=== PATIENT | male | born 1955 | race Caucasian/White ===

== ENCOUNTER → 2017-02-10 | Outpatient (CLI) | payer BC ==
[2015-08-06 05:26] VITALS: BP 149/88
--- NOTE | 2017-02-10 14:04 | RAD ---
Chest x-ray Indication: Cough and sinus drainage for one year Technique: PA and lateral views of the chest Comparison: None Findings: Heart is normal in size. Lungs are clear. No pneumothorax or pleural effusion. Visualized bony thorax within normal limits. Mild multilevel degenerative changes in the lower thoracic spine. Impression: No acute cardiopulmonary process.
== END | disposition home or self-care (01) ==
LOC: RAD 12:42
PROVIDERS: ATTEND Internal Medicine Pulmonary Disease
DX: R05 Cough (principal)
CPT/HCPCS: 71020

== ENCOUNTER → 2021-04-22 | Outpatient (CLI) | payer MEDICARE ==
[2015-08-06 05:26] VITALS: BP 149/88
--- NOTE | 2021-04-22 19:04 | KCIC ---
EXAM: PA and Lateral Views of the Chest DATE: 04/22/2021 11:36 AM INDICATION: Reason: COUGH, SOA, POST NASAL DRAINAGE / Spl. Instructions: / History: COMPARISON: No Prior FINDINGS: The heart is not enlarged. Mediastinal and hilar contours are normal. No focal parenchymal airspace opacity. No pleural effusion or pneumothorax. IMPRESSION: 1. No radiographic evidence for acute cardiopulmonary process. Electronically signed by: Valentín Hadley MD (04/22/2021 7:02 PM) [facility]
== END ==
LOC: KCIC 11:34
PROVIDERS: ATTEND Family Medicine
DX: R05.9 Cough, unspecified (principal); R06.02 Shortness of breath
CPT/HCPCS: 71046